=== PATIENT | female | born 1975 | race Caucasian/White ===

== ENCOUNTER 2020-06-29 00:04 | Emergency (ER) | payer SELFPAY ==
[~2020-06-29] VITALS: Ht 162.6 cm; Wt 89.8 kg
[2020-06-29 00:11] VITALS: Ht 162.6 cm; Wt 89.8 kg
[2020-06-29 01:08] VITALS: BP 137/84
== END 2020-06-29 01:09 | disposition home or self-care (01) ==
LOC: ED 00:04
DX: R60.0 Localized edema (principal)